=== PATIENT | male | born 1965 | race Caucasian/White ===

== ENCOUNTER 2017-08-09 14:01 | Emergency (ER) | payer OTHER ==
[~2017-08-09] VITALS: Ht 190.5 cm; Wt 132.1 kg
[2017-08-09 15:10] LABS: HEMATOCRIT 42.2 % (38.0-50.0); HEMOGLOBIN 15.2 G/DL (12.5-16.6); MCH 30.7 PG (29.0-34.0); MCV 85.3 FL (86-99); PLATELET COUNT 137 K/uL (156-360); RBC DIS.WIDTH-CV 12.6 % (11.8-14.6); RBC DIS.WIDTH-SD 38.9 % (39-53); RED BLOOD COUNT 4.95 M/uL (4.00-5.50); WHITE BLOOD COUNT 5.2 K/uL (4.1-10.2)
[2017-08-09 15:22] LABS: CHLORIDE 106 mEq/L (99-109); POTASSIUM 4.2 mEq/L (3.7-5.4); SODIUM 139 mEq/L (136-147)
[2017-08-09 15:23] LABS: GLUCOSE 88 mg/dL (70-99)
[2017-08-09 15:27] LABS: CREATININE 0.9 mg/dL (0.6-1.3); GFR ESTIMATE (CALCULATED) > 59 mL/min/ (58.99-99999)
[2017-08-09 15:28] LABS: UREA NITROGEN (BUN) 12 mg/dL (9-23)
[2017-08-09 15:49] LABS: APPEARANCE CLEAR ((CLEAR)); BILIRUBIN NEGATIVE; BLOOD NEGATIVE; COLOR YELLOW ((YELLOW)); GLUCOSE (STRIP) NEGATIVE; KETONES NEGATIVE; LEUKOCYTES NEGATIVE; NITRITE NEGATIVE; PROTEIN (STRIP) NEGATIVE; SPECIFIC GRAVITY 1.009 (1.000-1.030); UROBILINOGEN 0.2 MG/DL (0.2-1.0)
[2017-08-09] MEDS ORDERED: VENTOLIN HFA18 GM IH (16:18)
[2017-08-09] MEDS ORDERED: ZYRTEC10 M3 PO (16:18)
[2017-08-09 16:28] VITALS: BP 158/107
== END 2017-08-09 16:29 | disposition home or self-care (01) ==
LOC: EME 14:01
PROVIDERS: Nurse Practitioner Family
DX: I10 Essential (primary) hypertension (principal); R05 Cough
CPT/HCPCS: 71046; 80048; 81003; 85027; 93005; 99281; 99283